=== PATIENT | male | born 1940 | race African-American/Black ===

== ENCOUNTER 2019-05-09 18:39 | Inpatient (IN) | payer MEDICARE ==
[~2019-05-09] VITALS: Ht 180.3 cm; Wt 99.5 kg
[2019-05-09] MEDS ORDERED: TETANUS, DIPHTHERIA, PERTUSSIS VAC/PF 0.5ML (>7YR OLD) IM ONE (19:15)
[2019-05-09 19:53] LABS: BASOPHILS % 1.2 % (0.0-2.0); EOSINOPHILS % 2.5 % (0.0-5.0); HEMATOCRIT. 40.1 % (42.0-52.0); HEMOGLOBIN. 13.1 g/dL (14.0-18.0); LYMPHOCYTES % 26.3 % (20.0-50.0); MEAN CORPUSCULAR HEMOGLOBIN 27.7 pg (28.0-32.0); MEAN CORPUSCULAR VOLUME 84.9 fL (80.0-94.0); MEAN PLATELET VOLUME 7.9 fl (7.4-10.4); MONOCYTES % 7.4 % (2.0-8.0); NEUTROPHILS % 62.6 % (40.0-76.0); PLATELET 352 x1000/uL (130-400); RED BLOOD CELL COUNT 4.72 mill/uL (4.7-6.1)
[2019-05-09 19:56] LABS: CHLORIDE 109 mEq/L (98-107)
[2019-05-09] MEDS ORDERED: LIDOCAINE HCL/PF 1% 10 MG/ML 5ML VIAL IJ ONE (21:15)
[2019-05-09 22:53] LABS: CLARITY URINE CLEAR (CLEAR); COLOR URINE YELLOW (YELLOW); KETONES URINE NEGATIVE (NEGATIVE); LEUKOCYTE ESTERASE URINE NEGATIVE (NEGATIVE); NITRITE URINE NEGATIVE (NEGATIVE); OCCULT BLOOD URINE NEGATIVE (NEGATIVE); PROTEIN URINE TRACE (NEGATIVE); SPECIFIC GRAVITY URINE 1.026 (1.005-1.030)
[2019-05-09] MEDS ORDERED: CLONIDINE 0.1MG TABLET PO PRN (23:30)
[2019-05-09] MEDS ORDERED: DEXTROSE 50% WATER 50ML SYRINGE IV PRN (23:30)
[2019-05-09] MEDS ORDERED: ACETAMINOPHEN 325MG TABLET PO PRN (23:30)
[2019-05-09] MEDS ORDERED: DIPHENHYDRAMINE 50MG/ML VIAL IV PRN (23:30)
[2019-05-09] MEDS ORDERED: MAGNESIUM/ALUMINUM HYDROXIDE/SIMETHICONE 30ML UDC PO PRN (23:30)
[2019-05-09] MEDS ORDERED: ONDANSETRON HCL 4MG/2ML INJ IV PRN (23:30)
[2019-05-09] MEDS ORDERED: GUAIFENESIN 200MG/10ML SUGAR FREE UDC PO PRN (23:30)
[2019-05-09] MEDS ORDERED: LORAZEPAM 2MG/ML CPJ IV PRN (23:30)
[2019-05-09] MEDS ORDERED: IPRATROPIUM/ALBUTEROL 0.5-3(2.5)MG/3ML NEB HHN PRN (23:30)
[2019-05-10] MEDS: SODIUM CHLORIDE 0.9% 1,000 ML IV SCH ×2 (00:15→13:03)
[2019-05-10] MEDS: BLOOD SUGAR DIAGNOSTIC STRIP TEST SCH ×3 (13:02→20:49)
[2019-05-10] MEDS: INSULIN LISPRO 100 UNITS/ML SUBCUT SCH ×3 (13:02→20:48)
[2019-05-10] MEDS: METFORMIN HCL 500MG TABLET PO SCH ×2 (13:03→17:27)
[2019-05-10] MEDS: LISINOPRIL 2.5MG TABLET PO SCH (13:03)
[2019-05-10 15:35] VITALS: BP 135/58
[2019-05-10] MEDS ORDERED: ASPI-1497 MT (19:42)
[2019-05-10] MEDS ORDERED: PSYL0.4C2 MT (19:42)
[2019-05-10 20:00] VITALS: BP 147/56
[2019-05-10] MEDS: LEVETIRACETAM 500MG TABLET PO SCH (20:48)
[2019-05-10] MEDS: ENOXAPARIN 30MG/0.3ML SYR SUBCUT SCH (20:49)
[2019-05-11 00:19] VITALS: BP 106/49
[2019-05-11] MEDS: SODIUM CHLORIDE 0.9% 1,000 ML IV SCH ×2 (01:55→15:22)
[2019-05-11 04:00] VITALS: BP 149/59
[2019-05-11] MEDS: BLOOD SUGAR DIAGNOSTIC STRIP TEST SCH ×4 (06:24→20:28)
[2019-05-11 08:00] VITALS: BP 113/68
[2019-05-11] MEDS: METFORMIN HCL 500MG TABLET PO SCH ×2 (09:30→17:36)
[2019-05-11] MEDS: LEVETIRACETAM 500MG TABLET PO SCH ×2 (09:30→21:14)
[2019-05-11] MEDS: LISINOPRIL 2.5MG TABLET PO SCH (09:37)
[2019-05-11] MEDS: ENOXAPARIN 30MG/0.3ML SYR SUBCUT SCH ×2 (09:37→20:36)
[2019-05-11] MEDS: INSULIN LISPRO 100 UNITS/ML SUBCUT SCH ×4 (09:43→20:28)
[2019-05-11] MEDS: ASPIRIN 81MG EC TABLET PO SCH (11:31)
[2019-05-11 12:00] VITALS: BP 118/60
[2019-05-11] MEDS ORDERED: LIDOCAINE HCL 1% 20ML VIAL (Pyxis) INJ ONE (12:40)
[2019-05-11] MEDS ORDERED: SODIUM BICARBONATE 4% (2.4MEQ) 5ML VIAL IV ONE (12:40)
[2019-05-11] MEDS ORDERED: IOHEXOL-350 100 ML BOTTLE ONE (14:07)
[2019-05-11 16:00] VITALS: BP 132/67
[2019-05-11] MEDS: NITROGLYCERIN OINT 1GM/INCH UDPKT TD SCH ×2 (17:36→21:03)
[2019-05-11 20:00] VITALS: BP 102/60
[2019-05-11] MEDS: METOPROLOL TARTRATE 25MG TABLET PO SCH (20:35)
[2019-05-11] MEDS ORDERED: ATORVASTATIN CALCIUM 20MG TABLET PO SCH (21:00)
[2019-05-12] VITALS: BP 136/63
[2019-05-12 04:00] VITALS: BP 130/70
[2019-05-12] MEDS: NITROGLYCERIN OINT 1GM/INCH UDPKT TD SCH ×2 (05:09→13:47)
[2019-05-12] MEDS: SODIUM CHLORIDE 0.9% 1,000 ML IV SCH (05:09)
[2019-05-12] MEDS: BLOOD SUGAR DIAGNOSTIC STRIP TEST SCH ×3 (06:20→17:05)
[2019-05-12] MEDS: INSULIN LISPRO 100 UNITS/ML SUBCUT SCH ×2 (07:50→12:25)
[2019-05-12] MEDS: METFORMIN HCL 500MG TABLET PO SCH ×2 (07:50→17:05)
[2019-05-12 08:00] VITALS: BP 142/73
[2019-05-12] MEDS: METOPROLOL TARTRATE 25MG TABLET PO SCH (09:00)
[2019-05-12] MEDS: LEVETIRACETAM 500MG TABLET PO SCH (09:00)
[2019-05-12] MEDS: ASPIRIN 81MG EC TABLET PO SCH (09:00)
[2019-05-12] MEDS: ENOXAPARIN 30MG/0.3ML SYR SUBCUT SCH (09:00)
[2019-05-12] MEDS ORDERED: PAPAVERINE HCL 30 MG/ML 2ML IV ONE (09:29)
[2019-05-12] MEDS ORDERED: HEPARIN SODIUM 1,000 UNIT/1ML VIAL IV ONE (09:30)
[2019-05-12] MEDS ORDERED: BACITRACIN 15GM TUBE TOP ONE (09:30)
[2019-05-12] MEDS ORDERED: LIDOCAINE HCL 1% 20ML VIAL (Pyxis) INJ ONE (09:30)
[2019-05-12] MEDS ORDERED: THROMBIN (BOVINE) 5000 UNITS/VIAL TOP ONE (09:30)
[2019-05-12] MEDS ORDERED: BACITRACIN 50,000 UNITS/VIAL ONE (09:31)
[2019-05-12] MEDS ORDERED: NORMAL SALINE 0.9% 10 ML SYR ONE (09:31)
[2019-05-12] MEDS ORDERED: BUPIVACAINE HCL/PF 0.5% (5MG/ML) 10ML ONE (09:31)
[2019-05-12 12:00] VITALS: BP 98/62
== END 2019-05-12 17:45 | disposition home or self-care (01) | DRG 101 ==
LOC: ER 18:39 → 6WST 22:06 → ENRESERV 05-10 14:53
PROVIDERS: ADMIT Internal Medicine; ATTEND Internal Medicine
PROC: 0HQ0XZZ Repair Scalp Skin, External Approach (ICD-10-PCS; 2019-05-09)
PROC: 02HV33Z Insertion of Infusion Device into Superior Vena Cava, Percutaneous Approach (ICD-10-PCS; principal; 2019-05-11)
PROC: B548ZZA Ultrasonography of Superior Vena Cava, Guidance (ICD-10-PCS; 2019-05-11)
PROC: B5181ZA Fluoroscopy of Superior Vena Cava using Low Osmolar Contrast, Guidance (ICD-10-PCS; 2019-05-11)
DX: G40.909 Epilepsy, unspecified, not intractable, without status epilepticus (principal); R55 Syncope and collapse; Z86.73 Personal history of transient ischemic attack (TIA), and cerebral infarction without residual deficits; Z85.46 Personal history of malignant neoplasm of prostate; I65.22 Occlusion and stenosis of left carotid artery; I10 Essential (primary) hypertension; F17.210 Nicotine dependence, cigarettes, uncomplicated; E11.9 Type 2 diabetes mellitus without complications; S01.01XA Laceration without foreign body of scalp, initial encounter; Z96.651 Presence of right artificial knee joint; W22.03XA Walked into furniture, initial encounter; M19.90 Unspecified osteoarthritis, unspecified site; Z60.2 Problems related to living alone; Z88.8 Allergy status to other drugs, medicaments and biological substances; Z79.82 Long term (current) use of aspirin; Z83.3 Family history of diabetes mellitus; Z79.899 Other long term (current) drug therapy; Y93.89 Activity, other specified; Y92.89 Other specified places as the place of occurrence of the external cause; Y99.8 Other external cause status
CPT/HCPCS: 36415; 36573; 70496; 70498; 71045; 76937; 80053; 80061; 81003; 82962; 84484; 85025; 90715; 93005; 93306; 93880; 93970; 99285; C1725; J1644; J1650; J1815; J2440; J3490; Q9967

== ENCOUNTER 2019-05-13 18:03 | Emergency (ER) | payer MEDICARE ==
[~2019-05-13] VITALS: Ht 180.3 cm; Wt 95.0 kg
[~2019-05-13 18:03] MED LIST: ASPI-1497 MT; PSYL0.4C2 MT
[2019-05-13 18:05] VITALS: BP 136/82
== END 2019-05-13 18:54 | disposition home or self-care (01) ==
LOC: ER 18:03
DX: Z76.0 Encounter for issue of repeat prescription (principal); E11.9 Type 2 diabetes mellitus without complications; G40.909 Epilepsy, unspecified, not intractable, without status epilepticus; Z86.73 Personal history of transient ischemic attack (TIA), and cerebral infarction without residual deficits; Z88.1 Allergy status to other antibiotic agents; Z79.82 Long term (current) use of aspirin
CPT/HCPCS: 99282

== ENCOUNTER 2020-08-21 13:57 | Emergency (ER) | payer BC, MEDICARE ==
[~2020-08-21] VITALS: Ht 188 cm; Wt 103.0 kg
[2020-08-21] MEDS ORDERED: TRAMADOL 50MG TABLET PO ONE (15:00)
[2020-08-21 16:00] VITALS: BP 145/78
[2020-08-21] MEDS ORDERED: CEPH500C2 MT (16:08)
== END 2020-08-21 16:45 | disposition home or self-care (01) ==
LOC: ER 13:57
DX: E11.621 Type 2 diabetes mellitus with foot ulcer (principal); Z86.73 Personal history of transient ischemic attack (TIA), and cerebral infarction without residual deficits; Z79.82 Long term (current) use of aspirin
CPT/HCPCS: 73630; 99283